=== PATIENT | male | born 1995 | race Caucasian/White ===

== ENCOUNTER 2020-02-15 12:29 | Emergency (ER) | payer BC, SELFPAY ==
[2020-02-15 12:30] VITALS: BP 117/58; PULSE 119; RESP 18; TEMP 37.2; O2SAT 98; BMI 24.8
[2020-02-15] MEDS: Ondansetron 4 MG/2 ML Vial IV (12:53)
[2020-02-15] MEDS: 0.9% Normal Saline 1,000 ML 1000 ML IV (12:53)
--- NOTE | 2020-02-15 12:54 | ED.VIS.GI ---
History of Present Illness Informant: Patient - Abdominal Pain/Flank Pain Onset: Today Context: Sudden Onset Timing: Continuous Quality: Burning Location: Epigastric Current Severity: Moderate Maximum Severity: Moderate Worsened by: Food Relieved by: Remaining Still - Nausea/Vomiting/Emesis GI Symptom: Nausea, Vomiting Onset: Today Quality: Blood streaks Severity: Moderate Episodes: 5 - Diarrhea/Melena/Hematochezia GI Symptom: Negative for: Diarrhea, Melena, Hematochezia Associated Symptoms: Negative for: Dysuria, Frequency, Hematuria, Urgency Narrative: 25-year-old male who denies any significant past medical history presents to the emergency department complaining of nausea and vomiting. He has been feeling nauseous for the last 4 to 5 days and has been vomiting since about 2 AM. He has had several episodes of dry heaving with the most recent having speckles of blood. No [place] blood or blood clots. He is not anticoagulated. No diarrhea melena or hematochezia. He is having some mild burning epigastric pain. No chest pain or shortness of breath. No fevers or cough. No hemoptysis. No other symptoms of bleeding. No night sweats or weight loss. No contacts with anyone who has a positive coronavirus Prior similar symptoms: No Recent Illness/Hospitalization: No <Taco Martel - Last Filed: 02/15/20 13:50> <Kojo Mancilla - Last Filed: 02/15/20 15:00> Chief Complaint: Nausea/Vomiting Past Medical History Prior records reviewed: Yes Past Medical History: None Surgical History: no surgical history Lives: With Family Smoking Status: Never smoker Alcohol: Occasional Drugs: None <Taco Martel - Last Filed: 02/15/20 13:50> <Kojo Mancilla - Last Filed: 02/15/20 15:00> - Allergies and Home Meds Allergies/Adverse Reactions: Allergies amoxicillin Allergy (Verified 02/15/20 12:30) Hives Primary Care Physician: Luly Salas MD [STAFF PHYSICIAN] - Review of Systems All systems negative except as indicated General: Denies: Chills, Fever, Sweats Eyes: Denies: Visual changes - bilaterally, Diplopia ENT: Denies: Rhinorrhea, Sore throat Cardiovascular: Denies: Chest pain, Palpitations Respiratory: Denies: Dyspnea, Cough, Dyspnea on exertion Gastrointestinal: Reports: Abdominal pain, Nausea, Vomiting. Denies: Diarrhea, Constipation, Melena, Hematochezia Genitourinary: Denies: Dysuria, Hematuria, Frequency Musculoskeletal: Denies: Back pain, Extremity Pain Skin: Denies: Rash, Wounds Neurological: Denies: Headache, Weakness, Numbness <Taco Martel - Last Filed: 02/15/20 13:50> Physical Exam Vital Signs/Narrative: Vital Signs Temp Pulse Resp BP Pulse Ox 02/15/20 12:30 99.0 F 119 H 18 117/58 L 98 Inital Vital Signs reviewed: Yes General: Well nourished, Well developed, No Acute Distress Head: Normocephalic, Atraumatic Eyes: Perrl, EOMI ENT: Moist mucous membranes, No rhinorrhea Neck: Supple, Nontender Cardiovascular: Regular rate, Regular rhythm, No murmurs Respiratory: No distress, CTA bilaterally, Chest nontender Abdomen: Soft, Nontender, Nondistended, Normal bowel sounds Back: Nontender, Normal Inspection Extremities: Nontender, No edema Skin: Normal color, No rash Neurological: Alert, Oriented x3, Cranial nerves II-XII grossly intact, Normal Strength, Normal Sensation Psychological: Normal affect, Normal Mood <Taco Martel - Last Filed: 02/15/20 13:50> Vital Signs/Narrative: Vital Signs Temp Pulse Resp BP Pulse Ox 02/15/20 14:51 115 H 18 111/56 L 99 02/15/20 12:30 99.0 F 119 H 18 117/58 L 98 <Kojo Mancilla - Last Filed: 02/15/20 15:00> Diagnostic/Tx/Re-eval Laboratory Tests 02/15/20 02/15/20 Range/Units 12:50 12:50 WBC 13.1 H (4.4-11.0) K/mm3 RBC 5.06 (4.6-6.2) M/mm3 Hgb 14.1 (13.0-16.5) g/dL Hct 42.4 (40-54) % MCV 83.8 (80-94) fL MCH 27.9 (27.0-32.0) pg MCHC 33.3 (32-36) g/dL RDW Std Deviation 37.5 (35.1-43.9) fl RDW Coeff of Ute 12.3 (11.6-14.6) % Plt Count 254 (150-450) K/mm3 MPV 9.6 (6.2-12.0) fl Immature Gran % (Auto) 0.400 (0.0-0.9) % Neut % (Auto) 79.1 H (47-70) % Lymph % (Auto) 9.5 L (19-41) % [place] % (Auto) 10.5 H (0-10) % Eos % (Auto) 0.1 (0-5) % Baso % (Auto) 0.4 (0-1) % Absolute Neuts (auto) 10.4 H (2.0-7.7) X10^3/uL Absolute Lymphs (auto) 1.25 (0.83-4.51) X10^3/uL Nucleated RBC % 0 (0-5) % Sodium 137 (136-145) mmol/L Potassium 3.5 (3.5-5.1) mmol/L Chloride 102 (98-107) mmol/L Carbon Dioxide 25.0 (21.0-32.0) mmol/L Anion Gap 10 (5-15) BUN 9 (7-18) mg/dL Creatinine 1.17 (0.70-1.30) mg/dL Estim Creat Clear Calc 96.52 ml/min Est GFR (MDRD) Af Amer 98 (>60) mL/min Est GFR (MDRD) Non-Af 81 (>60) mL/min BUN/Creatinine Ratio 7.7 L (10-20) RATIO Glucose 102 (74-106) mg/dL Calcium 9.1 (8.5-10.1) mg/dL Total Bilirubin 1.20 H (0.20-1.00) mg/dL AST 76 H (15-37) U/L ALT 94 H (16-61) U/L Alkaline Phosphatase 98 (45-117) U/L Total Protein 7.8 (6.4-8.2) g/dL Albumin 3.7 (3.2-5.0) g/dL Globulin 4.1 (2.2-4.2) g/dL Albumin/Globulin Ratio 0.9 (0.9-2.4) RATIO Lipase 64 L (73-393) U/L - Medical Decision Making Patient's abdomen is soft and nontender. He is stable vital signs. He was treated with IV fluids and Zofran. CBC, CMP, lipase were all essentially unremarkable other than a minimally elevated white blood cell count of 13. Repeat exam his abdomen is soft nontender he is tolerating by mouth his nausea is improved. At this time we feel this is likely GERD versus gastritis versus early peptic ulcer disease. He will be placed on omeprazole and I will give him a prescription for Zofran as needed. He was referred to a primary care physician for follow-up. We do not feel he needs further imaging or admission at this time. He was given return precautions and will be discharged <Taco Martel - Last Filed: 02/15/20 13:50> - Medical Decision Making Attending Note: I evaluated this patient with the midlevel provider. I performed my own face to face evaluation and agree with the above noted history and physical. I agree with the plan of care and the disposition. Patient presented secondary to abdominal pain. Physical exam demonstrated epigastric tenderness. Patient had some indeterminate elevation of his bilirubin and transaminases. Presentation seems most consistent with gastritis. <Kojo Mancilla - Last Filed: 02/15/20 15:00> ED Disposition <Taco Martel - Last Filed: 02/15/20 13:50> <Kojo Mancilla - Last Filed: 02/15/20 15:00> - Plan for ED Patient: Disposition: Home or Assisted Living Diagnosis: Abdominal pain, GERD (gastroesophageal reflux disease) Instructions: Esophagitis, ED ACID INDIGESTION Adult Prescriptions: Omeprazole [Prilosec] 40 mg PO DAILY #30 cap Prescription Printed Ondansetron [Zofran Odt] 4 mg PO Q8H PRN PRN #10 tab PRN Reason: Nausea Prescription Printed Referrals: Luly Salas MD [STAFF PHYSICIAN] -
[2020-02-15 13:01] LABS: Absolute Lymphocyte Count 1.25 X10^3/uL (0.83-4.51); Absolute Neutrophil Count 10.4 X10^3/uL (2.0-7.7); Basophil# 0.05 X10^3/uL; Basophil% 0.4 % (0-1); Eosinophil# 0.01 X10^3/uL; Eosinophils% 0.1 % (0-5); Hematocrit 42.4 % (40-54); Hemoglobin 14.1 g/dL (13.0-16.5); Lymphocyte # 1.25 X10^3/ul (4.0); Lymphocyte % 9.5 % (19-41); Mean Corp Hgb Conc 33.3 g/dL (32-36); Mean Corpuscular Hgb 27.9 pg (27.0-32.0); Mean Corpuscular Volume 83.8 fL (80-94); Mean Platelet Vol. 9.6 fl (6.2-12.0); Monocyte# 1.38 X10^3/uL; Monocyte% 10.5 % (0-10); NRBC Flagged by Analyzer 0 % (0-5); Neutrophil # 10.38 X10^3/uL (2.7-7.7); Neutrophil % 79.1 % (47-70); Platelet Count 254 K/mm3 (150-450); RBC Distribution Width CV 12.3 % (11.6-14.6); RBC Distribution Width SD 37.5 fl (35.1-43.9); Red Blood Count 5.06 M/mm3 (4.6-6.2); White Blood Count 13.1 K/mm3 (4.4-11.0)
[2020-02-15 13:28] LABS: ALB/GLOB Ratio 0.9 RATIO (0.9-2.4); AST(SGOT) 76 U/L (15-37); Alanine Aminotransfer ALT/SGPT 94 U/L (16-61); Albumin, Serum 3.7 g/dL (3.2-5.0); Alkaline Phosphatase 98 U/L (45-117); Anion Gap 10 (5-15); BUN 9 mg/dL (7-18); BUN/Creat Ratio 7.7 RATIO (10-20); Calcium,Total 9.1 mg/dL (8.5-10.1); Chloride 102 mmol/L (98-107); Creatinine, Serum 1.17 mg/dL (0.70-1.30); EST Glomerular Filtration Rate 81 mL/min (>60); Est Glom Filt Rate - Afr Amer 98 mL/min (>60); Estimated Creatinine Clearance 96.52 ml/min; Globulin 4.1 g/dL (2.2-4.2); Glucose 102 mg/dL (74-106); Lipase 64 U/L (73-393); Potassium 3.5 mmol/L (3.5-5.1); Protein, Total 7.8 g/dL (6.4-8.2); Sodium Level 137 mmol/L (136-145)
[2020-02-15] MEDS: Metoclopramide 10 MG/2 ML Vial IV (14:45)
[2020-02-15] MEDS: DiphenhydrAMINE 50 MG/ML Syringe IV (14:45)
[2020-02-15 14:51] VITALS: BP 111/56; PULSE 115; RESP 18; O2SAT 99
== END 2020-02-15 14:52 | disposition home or self-care (01) ==
PROVIDERS: Emergency Provider Physician Assistant Medical
DX: K21.9 Gastro-esophageal reflux disease without esophagitis (principal); R10.816 Epigastric abdominal tenderness; R11.2 Nausea with vomiting, unspecified; Z88.0 Allergy status to penicillin
CPT/HCPCS: 80053; 83690; 85025; 96361; 96374; 96375; 99283; J7030; A4216; J2405

== ENCOUNTER 2020-09-03 13:53 | Emergency (ER) | payer SELFPAY ==
[2020-09-03 13:54] VITALS: BP 133/93; PULSE 90; RESP 16; TEMP 36.8; O2SAT 100; BMI 26.0
--- NOTE | 2020-09-03 14:24 | CT_ITS ---
STUDY: CT ABDOMEN AND PELVIS WITHOUT CONTRAST REASON FOR EXAM: Male, 25 years old. RLQ,RT FLANK PAIN, HEMATURIA RADIATION DOSAGE (If Supplied By Facility): CTDIvol = ( 9.96 ) mGy, DLP = ( 498.72 ) mGycm TECHNIQUE: Transaxial images were obtained from the dome of the diaphragm to the symphysis pubis without oral contrast, and without intravenous contrast. Sagittal and coronal images were reconstructed. Individualized dose optimization techniques were used for this CT. COMPARISON: None. FINDINGS: The visualized lung bases are unremarkable. The visualized portions of the heart are within normal limits. Normal liver. Normal gallbladder and extrahepatic biliary system. Normal spleen. Normal pancreas. Normal bilateral adrenal glands. 2 mm calculus in the upper pole calyx of the right kidney. 2.3 mm calculus in the medial upper pole calyx of the right kidney. There is evidence of a mild degree of right hydronephrosis and right proximal hydroureter due to a 4.4 mm calculus in the midportion of the right ureter. Mild degree of right perinephric stranding. Normal left kidney. There is a small hiatal hernia. Normal small intestine. There are scattered colonic diverticula consistent with diverticulosis. The appendix is visualized and appears normal. Normal abdominal aorta. Normal inferior vena cava. Normal retroperitoneum. Normal urinary bladder. There is a right-sided inguinal hernia containing adipose tissue. Normal osseous structures. CT/Abdomen/Pelvis without Cont IMPRESSION: 4.4 mm calculus in the midportion of the right ureter causing mild degree of right hydronephrosis and proximal right hydroureter. Tiny nonobstructive right intrarenal calculi. Electronically Signed: Addison Varner, at 15:32 EST , Service support ,
--- NOTE | 2020-09-03 14:25 | ED.DCSUM_ITS ---
History of Present Illness Chief Complaint: Flank Pain Informant: Patient Onset: Days Context: Gradual Onset Timing: Waxes and wanes Current Severity: Mild Maximum Severity: Moderate Narrative: Patient presents with intermittent right flank pain for the past couple days. Today noted some mild hematuria. He does report some nausea with pain. He has not taken anything today for pain. No known history of kidney stones. - Past Medical History (1) GERD (gastroesophageal reflux disease) Status: Chronic Past Medical History - Allergies and Home Meds Allergies/Adverse Reactions: Allergies amoxicillin Allergy (Verified 09/03/20 13:56) Hives Primary Care Physician: Care Physician,No Primary [NON-STAFF] - Prior records reviewed: Yes Surgical History: no surgical history Smoking Status: Current some day smoker Review of Systems General: Denies: Chills, Fever Eyes: Denies: Visual changes - bilaterally ENT: Denies: Bilateral ear pain Cardiovascular: Denies: Chest pain Respiratory: Denies: Dyspnea, Cough Gastrointestinal: Reports: Abdominal pain, Nausea. Denies: Diarrhea, Constipation Genitourinary: Reports: Hematuria. Denies: Dysuria Musculoskeletal: Denies: Extremity Pain Skin: Denies: Rash Neurological: Denies: Headache Hematologic: Denies: Easy bruising, Easy bleeding Allergy: Denies: Uticaria Physical Exam Vital Signs/Narrative: Vital Signs Temp Pulse Resp BP Pulse Ox 09/03/20 13:54 98.2 F 90 16 133/93 H 100 Inital Vital Signs reviewed: Yes General: Well nourished, Well developed Head: Normocephalic ENT: Moist mucous membranes Neck: Supple Cardiovascular: Regular rate, Regular rhythm Respiratory: No distress, CTA bilaterally Abdomen: Soft, Nontender, Normal bowel sounds Back: Nontender Extremities: Nontender Skin: Normal color Neurological: Alert, Oriented x3 Psychological: Normal affect Diagnostic/Tx/Re-eval Impressions Abdomen/Pelvis CT 09/03/20 14:24 IMPRESSION: 4.4 mm calculus in the midportion of the right ureter causing mild degree of right hydronephrosis and proximal right hydroureter. Tiny nonobstructive right intrarenal calculi. Electronically Signed: Addison Varner, at 15:32 EST , Service support , 09/03/20 14:24 Abdomen/Pelvis without Cont [CT] Stat Laboratory Results 09/03/20 09/03/20 09/03/20 14:50 14:50 15:45 WBC 10.6 RBC 5.46 Hgb 15.6 Hct 44.7 MCV 81.9 MCH 28.6 MCHC 34.9 RDW Std Deviation 35.5 RDW Coeff of Ute 11.9 Plt Count 358 MPV 9.9 Immature Gran % (Auto) 0.300 Neut % (Auto) 58.3 Lymph % (Auto) 30.7 [place] % (Auto) 8.5 Eos % (Auto) 1.7 Baso % (Auto) 0.5 Absolute Neuts (auto) 6.2 Absolute Lymphs (auto) 3.25 Nucleated RBC % 0 Sodium 142 Potassium 3.6 Chloride 108 H Carbon Dioxide 31.0 Anion Gap 3 L BUN 12 Creatinine 1.11 Estim Creat Clear Calc 101.73 Est GFR (MDRD) Af Amer 103 Est GFR (MDRD) Non-Af 85 BUN/Creatinine Ratio 10.8 Glucose 83 Calcium 9.1 Urine Color Yellow Urine Clarity Cloudy Urine pH 7.0 Ur Specific [place] 1.015 Urine Protein 30 H Urine Glucose (UA) Normal Urine Ketones 5 H Urine Occult Blood 250 H Urine Nitrite Negative Urine Bilirubin Negative Urine Urobilinogen Normal Ur Leukocyte Esterase 25 H Urine RBC > 100 SEEN Urine WBC 0-5 SEEN Ur Squamous Epith Cells 0-5 SEEN Amorphous Sediment 1+ URATE Urine Bacteria 0 SEEN Urine Mucus 0 SEEN - Medical Decision Making Patient was initially given Toradol and Zofran along with IV fluids. CT test results are discussed with him. He does have a 4.4 cm stone in the mid right u reter. Renal function is normal. No sign of infection in the urinalysis. Patient was given 1 tab of p.o. [place] here to help with pain. He will be given prescriptions for Toradol, [place], Zofran, and Flomax. He will be referred to urology for follow-up as needed. He is given instructions to return to the ER as needed. ED Disposition - Plan for ED Patient: Disposition: Home or Assisted Living Diagnosis: Kidney stone on right side Instructions: ED Kidney Stone w/ Colic Prescriptions: Tamsulosin HCl [Flomax] 0.4 mg PO DAILY #7 cap Transmission Status: Pending to [facility] Hydrocodone Bitart/Apap 5-325 [[place] 5MG-325MG] 1 tablet PO Q6H PRN PRN 3 Days #10 tablet PRN Reason: Pain Transmission Status: Sent to [facility] Ketorolac [Toradol] 10 mg PO Q6H PRN #14 tab PRN Reason: Pain Score 4-10 Transmission Status: Pending to [facility] Ondansetron [Zofran Odt] 4 mg PO Q8H PRN PRN #10 tab PRN Reason: Nausea Transmission Status: Pending to [facility] Referrals: Irineo Holliday MD [STAFF PHYSICIAN] - 10-14 Days if not better
[2020-09-03] MEDS: 0.9% Normal Saline 1,000 ML 250 ML IV (14:48)
[2020-09-03] MEDS: Ketorolac 30 MG/ML Syringe IV (14:49)
[2020-09-03] MEDS: Ondansetron 4 MG/2 ML Vial IV (14:49)
[2020-09-03 15:17] LABS: Anion Gap 3 (5-15); BUN 12 mg/dL (7-18); BUN/Creat Ratio 10.8 RATIO (10-20); Calcium,Total 9.1 mg/dL (8.5-10.1); Chloride 108 mmol/L (98-107); Creatinine, Serum 1.11 mg/dL (0.70-1.30); EST Glomerular Filtration Rate 85 mL/min (>60); Est Glom Filt Rate - Afr Amer 103 mL/min (>60); Estimated Creatinine Clearance 101.73 ml/min; Glucose 83 mg/dL (74-106); Potassium 3.6 mmol/L (3.5-5.1); Sodium Level 142 mmol/L (136-145)
[2020-09-03 15:21] LABS: Absolute Lymphocyte Count 3.25 X10^3/uL (0.83-4.51); Absolute Neutrophil Count 6.2 X10^3/uL (2.0-7.7); Basophil# 0.05 X10^3/uL; Basophil% 0.5 % (0-1); Eosinophil# 0.18 X10^3/uL; Eosinophils% 1.7 % (0-5); Hematocrit 44.7 % (40-54); Hemoglobin 15.6 g/dL (13.0-16.5); Lymphocyte # 3.25 X10^3/ul (4.0); Lymphocyte % 30.7 % (19-41); Mean Corp Hgb Conc 34.9 g/dL (32-36); Mean Corpuscular Hgb 28.6 pg (27.0-32.0); Mean Corpuscular Volume 81.9 fL (80-94); Mean Platelet Vol. 9.9 fl (6.2-12.0); Monocyte% 8.5 % (0-10); NRBC Flagged by Analyzer 0 % (0-5); Neutrophil # 6.18 X10^3/uL (2.7-7.7); Neutrophil % 58.3 % (47-70); Platelet Count 358 K/mm3 (150-450); RBC Distribution Width CV 11.9 % (11.6-14.6); RBC Distribution Width SD 35.5 fl (35.1-43.9); Red Blood Count 5.46 M/mm3 (4.6-6.2); White Blood Count 10.6 K/mm3 (4.4-11.0)
[2020-09-03 15:52] LABS: Bacteria 0 SEEN /hpf (None Seen); Mucous, Urine 0 SEEN /hpf (<or=2+)
[2020-09-03] MEDS: HYDROcodone Bitartrate/Apap 5/325 Tablet PO (15:58)
[2020-09-03 16:12] LABS: Glucose, Dipstick Normal (Normal); Ketone-Dipstick 5 mg/dl (Negative); Leukocyte Esterase-Dipstick 25 /ul (Negative); Nitrite-Dipstick Negative (Negative); Occult Blood-Urine 250 /ul (Negative); Protein-Dipstick 30 mg/dl (Negative); Specific Gravity, Urine 1.015 (1.002-1.030); Urine Bilirubin Dipstick Negative (Negative); Urine Urobilinogen Normal (Normal)
[2020-09-03 16:38] LABS: Color, Urine Yellow (Yellow); Urine Clarity Cloudy (Clear)
[2020-09-03 16:54] LABS: Red Blood Cells-Urine > 100 SEEN /hpf (0-5); Squamous Epithelial Cells - UA 0-5 SEEN /hpf (0-5); White Blood Cells 0-5 SEEN /hpf (0-5)
[2020-09-03 16:55] LABS: Amorphous Sediment 1+ URATE
[2020-09-03 17:12] VITALS: BP 114/65; PULSE 61; RESP 16
== END 2020-09-03 17:22 | disposition home or self-care (01) ==
PROVIDERS: Emergency Provider Emergency Medicine; PCP Family Medicine
DX: N13.2 Hydronephrosis with renal and ureteral calculous obstruction (principal); K21.9 Gastro-esophageal reflux disease without esophagitis; F17.200 Nicotine dependence, unspecified, uncomplicated; Z79.899 Other long term (current) drug therapy
CPT/HCPCS: 74176; 80048; 81001; 85025; 96361; 96374; 96375; 99284; J7030; J2405